=== PATIENT | female | born 2000 | race Caucasian/White ===

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

== ENCOUNTER 2018-02-28 13:42 | Emergency (ER) | payer OTHER ==
[2018-02-28] MEDS ORDERED: NS 1,000 ML IV ONE (13:51)
--- NOTE | 2018-02-28 13:52 | EDPHY ---
HPI/HX/ROS/PE/MDM Narrative: CHIEF COMPLAINT: Syncope HPI: The patient is a 17 y/o female complaining of a syncopal episode this morning s/ p left ACL and medial meniscus surgery 10 days ago. While she was in the shower today, the patient became lightheaded and dizzy, followed by her arms feeling heavy and ringing in her ears. Due to these abnormal symptoms she was sat down and called her mom. When the patient's mom walked into the bathroom, she saw the patient lose consciousness for less than 30 seconds. Denies hitting her head , chest pain, shortness of breath, personal or familial history of blood clot. After the syncopal episode she felt more tired, but her symptoms began to improve after drinking Gatorade. Since yesterday, she has drank less water than normal. Denies headache, numbness, paresthesias, fever, abdominal pain, urinary or bowel complaints. REVIEW OF SYSTEMS: Aside from elements discussed in the HPI, a comprehensive 10-point review of systems was reviewed and is negative. PMH: Asthma, left knee surgery SOCIAL HISTORY: Mother at bedside, student at in [employer], originally from [place] PHYSICAL EXAM: General: Patient is alert, in no acute distress. ENT: Eyes are normal to inspection. ENT inspection normal. Neck: Normal inspection. Full range of motion. Respiratory: No respiratory distress. Breath sounds normal bilaterally. Cardiovascular: Regular rate and rhythm. Strong peripheral pulses. Normal cap refill. Abdomen: The abdomen is nontender to palpation. There are no peritoneal signs. There are normal bowel sounds. Back: Normal to inspection. No tenderness to palpation. Skin: Normal color. No rash. Warm and dry. Extremities: Normal appearance. Full range of motion. Neuro: Oriented x3. Normal motor function. Normal sensory function. ED Course: 1402: EKG was ordered and interpreted by myself. Please see [facility] system for official reading. 1435: Patient's labs are normal. 1436: Reassessed patient and discussed normal EKG and laboratory findings. I have advised her to follow up with a bunch trimmer mold in the next week. Return precautions provided; patient and her mother are comfortable with this plan. MDM: This is a young healthy female who presents with witnessed syncopal episode. This seems likely to be multi-factorial, as weather has been extremely hot, patient has not been drinking adequate fluids, patient just began her period and episode occurred while taking a hot shower. I considered PE given recent knee surgery, but patient denies chest pain or shortness of breath at any time and she is now asymptomatic. I discussed option of CTA-chest with patient and her mother extensively, and they decline additional testing. - Data Points Laboratory Results: Laboratory Results 02/28/18 14:05 02/28/18 14:05 02/28/18 02/28/18 02/28/18 14:19 14:05 14:05 WBC RBC Hgb Hct MCV MCH MCHC RDW Plt Count MPV Neut % (Auto) Lymph % (Auto) Gregory % (Auto) Eos % (Auto) Baso % (Auto) Nucleat RBC Rel Count Absolute Neuts (auto) Absolute Lymphs (auto) Absolute Monos (auto) Absolute Eos (auto) Absolute Basos (auto) Absolute Nucleated RBC Immature Gran % Immature Gran # Sodium 140 mEq/L mEq/L (135-145) Potassium 4.1 mEq/L mEq/L (3.3-5.0) Chloride 102 mEq/L mEq/L (97-110) Carbon Dioxide 24 mEq/l mEq/l (22-31) Anion Gap 14 mEq/L mEq/L (8-16) BUN 23 mg/dL mg/dL (7-23) Creatinine 0.8 mg/dL mg/dL (0.6-1.0) Estimated GFR > 60 Glucose 104 mg/dL H mg/dL (70-100) Calcium 9.9 mg/dL mg/dL (8.5-10.4) POC Troponin I 0.00 ng/mL ng/mL (0.00-0.08) Beta HCG, Qual NEGATIVE 02/28/18 14:05 WBC 10.50 10^3/uL H 10^3/uL (3.80-9.50) RBC 4.70 10^6/uL 10^6/uL (4.18-5.33) Hgb 14.0 g/dL g/dL (12.6-16.3) Hct 38.9 % % (38.0-47.0) MCV 82.8 fL fL (81.5-99.8) MCH 29.8 pg pg (27.9-34.1) MCHC 36.0 g/dL g/dL (32.4-36.7) RDW 12.0 % % (11.5-15.2) Plt Count 304 10^3/uL 10^3/uL (150-400) MPV 9.4 fL fL (8.7-11.7) Neut % (Auto) 72.5 % % (39.3-74.2) Lymph % (Auto) 19.9 % % (15.0-45.0) Gregory % (Auto) 6.2 % % (4.5-13.0) Eos % (Auto) 0.6 % % (0.6-7.6) Baso % (Auto) 0.4 % % (0.3-1.7) Nucleat RBC Rel Count 0.0 % % (0.0-0.2) Absolute Neuts (auto) 7.62 10^3/uL H 10^3/uL (1.70-6.50) Absolute Lymphs (auto) 2.09 10^3/uL 10^3/uL (1.00-3.00) Absolute Monos (auto) 0.65 10^3/uL 10^3/uL (0.30-0.80) Absolute Eos (auto) 0.06 10^3/uL 10^3/uL (0.03-0.40) Absolute Basos (auto) 0.04 10^3/uL 10^3/uL (0.02-0.10) Absolute Nucleated RBC 0.00 10^3/uL 10^3/uL (0-0.01) Immature Gran % 0.4 % % (0.0-1.1) Immature Gran # 0.04 10^3/uL 10^3/uL (0.00-0.10) Sodium Potassium Chloride Carbon Dioxide Anion Gap BUN Creatinine Estimated GFR Glucose Calcium POC Troponin I Beta HCG, Qual Medications Given: Discontinued Medications Sodium Chloride (Ns) 1,000 mls @ 0 mls/hr IV EDNOW ONE; Wide Open PRN Reason: Protocol Stop: 02/28/18 13:52 Last Admin: 02/28/18 14:08 Dose: 1,000 mls Point of Care Test Results: Chemistry 02/28/18 14:19 POC Troponin I 0.00 ng/mL ng/mL (0.00-0.08) General Time Seen by Provider: 02/28/18 13:51 Initial Vital Signs: Initial Vital Signs Temperature (C) 36.3 C 02/28/18 13:43 Heart Rate 116 H 02/28/18 13:43 Respiratory Rate 18 02/28/18 13:43 Blood Pressure 124/73 H 02/28/18 13:43 O2 Sat (%) 96 02/28/18 13:43 O2 Delivery Mode Room Air Allergies/Adverse Reactions: No Known Allergies Allergy (Verified 02/28/18 13:43) Home Medications: Medication Instructions Recorded Ibuprofen [Motrin (*)] 600 mg PO Q6 #15 tab 12/12/17 Departure - Departure Disposition: Home, Routine, Self-Care Clinical Impression: Syncope Qualifiers: Syncope type: unspecified Qualified Code(s): R55 - Syncope and collapse Condition: Good Instructions: Syncope (ED) Additional Instructions: Follow up with a bunch trimmer mold for further testing, as soon as possible, within one week. You have been referred to Dr. Stephen. Follow-up with your primary doctor within 72 hours. Return to the Emergency Department for chest pain, shortness of breath, severe headache, vomiting, vision changes, confusion, fever or other concerns. Please make increase your fluid intake. Referrals: LULU CAMPOVERDE [Medical Doctor] - As per Instructions Lokesh Stephen MD [Medical Doctor] - As per Instructions Report Scribed for: Danis Menchaca Report Scribed by: Eliza Chambers Date of Report: 02/28/18 Time of Report: 13:52 Physician Review and Approval Statement: Portions of this note were transcribed by an ED scribe. I personally performed the history, physical exam, and medical decision making; and confirm the accuracy of the information in the transcribed note.
--- NOTE | 2018-02-28 14:04 | CPEKG ---
Heart Rate: 105 RR Interval: 571 P-R Interval: 140 QRSD Interval: 78 QT Interval: 332 QTC Interval: 439 P Oldfield: 73 QRS Oldfield: 87 T Wave Oldfield: -17 EKG Severity - ABNORMAL ECG - EKG Impression: SINUS TACHYCARDIA EKG Impression: BIATRIAL ABNORMALITIES EKG Impression: NONSPECIFIC T ABNORMALITIES, INFERIOR LEADS Electronically Signed By: Marguerite Peters 02-Mar-2018 08:35:42
[2018-02-28 14:20] LABS: PLATELET COUNT 304 10^3/uL (150-400)
[2018-02-28 14:52] VITALS: BP 126/81
== END 2018-02-28 14:53 | disposition home or self-care (01) ==
DX: R55 Syncope and collapse (principal); J45.909 Unspecified asthma, uncomplicated; E86.9 Volume depletion, unspecified
CPT/HCPCS: 84484-PO